=== PATIENT | female | born 1950 | race African-American/Black ===

== ENCOUNTER 2018-08-10 17:25 | Emergency (ER) | payer SELFPAY ==
[~2018-08-10] VITALS: Ht 165.1 cm; Wt 52.0 kg
[2018-08-10] MEDS ORDERED: SODIUM CHLORIDE 0.9% 1,000 ML IV ONE ×2 (19:45)
[2018-08-10 20:06] LABS: HEMATOCRIT. 47.2 % (36.0-48.0); HEMOGLOBIN. 15.9 g/dL (12.0-16.0); MEAN CORPUSCULAR HEMOGLOBIN 31.3 pg (28.0-32.0); MEAN CORPUSCULAR VOLUME 93.1 fL (81.0-99.0); MEAN PLATELET VOLUME 9.5 fl (7.4-10.4); PLATELET 461 x1000/uL (130-400); RED BLOOD CELL COUNT 5.07 mill/uL (4.2-5.4); RED CELL DISTRIBUTION WIDTH 14.3 % (11.6-14.6)
[2018-08-10 20:10] LABS: CHLORIDE 107 mEq/L (98-107); INR 1.1; PROTHROMBIN TIME 11.5 sec (9.6-11.0)
[2018-08-10 20:53] LABS: CREATINE KINASE 1217 IU/L (26-192)
[2018-08-10 21:31] LABS: PLATELET ESTIMATE INCREASED
[2018-08-10] MEDS ORDERED: MORPHINE SULFATE 4 MG/ML CPJ (NOT FOR IM USE) IV ONE (23:30)
[2018-08-10] MEDS ORDERED: ONDANSETRON HCL 4MG/2ML INJ IV ONE (23:30)
[2018-08-10] MEDS ORDERED: SILVER SULFADIAZINE 1% CREAM 50GM TOP STA (23:30)
[2018-08-10 23:45] VITALS: BP 143/82
== END 2018-08-11 00:34 | disposition short-term general hospital (02) ==
LOC: ER 17:25
DX: T21.24XA Burn of second degree of lower back, initial encounter (principal); T21.25XA Burn of second degree of buttock, initial encounter; T21.21XA Burn of second degree of chest wall, initial encounter; M62.82 Rhabdomyolysis; N17.9 Acute kidney failure, unspecified; D72.829 Elevated white blood cell count, unspecified; E88.09 Other disorders of plasma-protein metabolism, not elsewhere classified; R74.0 Nonspecific elevation of levels of transaminase and lactic acid dehydrogenase [LDH]; D47.3 Essential (hemorrhagic) thrombocythemia; G35 Multiple sclerosis; Z88.0 Allergy status to penicillin; W05.0XXA Fall from non-moving wheelchair, initial encounter; Y93.89 Activity, other specified; Y92.89 Other specified places as the place of occurrence of the external cause; Y99.8 Other external cause status
CPT/HCPCS: 16020; 36415; 80053; 82550; 85025; 85610; 96374; 96375; 99285; A4217; J2270; J2405; J7030; Z7610; A4315